=== PATIENT | female | born 1930 | race African-American/Black ===

== ENCOUNTER 2017-07-09 18:05 | Emergency (ER) | payer MEDICARE, MEDICAID ==
[~2017-07-09] VITALS: Ht 157.5 cm; Wt 69.0 kg
[2017-07-09] MEDS ORDERED: AMOXICILLIN/POTASSIUM CLAVULANATE 875/125MG TAB PO ONE (22:45)
[2017-07-09] MEDS ORDERED: ACYCLOVIR 400 MG TABLET PO ONE (22:45)
[2017-07-10 01:10] VITALS: BP 141/78
== END 2017-07-10 01:12 | disposition home or self-care (01) ==
LOC: ER 18:05
DX: B02.9 Zoster without complications (principal); E78.00 Pure hypercholesterolemia, unspecified; I10 Essential (primary) hypertension; E11.9 Type 2 diabetes mellitus without complications
CPT/HCPCS: 82962; 99283